=== PATIENT | female | born 1995 | race American Indian/Alaskan Native ===

== ENCOUNTER 2022-06-02 21:52 | Emergency (ER) | payer BC ==
[2022-06-02] MEDS ORDERED: LORazepam 1 MG Tab PO ONE (22:36)
== END 2022-06-02 22:52 | disposition home or self-care (01) ==
LOC: JP.ED 21:52
DX: J45.909 Unspecified asthma, uncomplicated (principal); R06.4 Hyperventilation; Z72.0 Tobacco use; Z79.899 Other long term (current) drug therapy
CPT/HCPCS: 99283; 99284; A9270-GY

== ENCOUNTER 2022-06-19 21:49 | Emergency (ER) | payer BC | END 2022-06-19 23:29 | disposition home or self-care (01) | LOC: JP.ED 21:49 | DX: J03.91 Acute recurrent tonsillitis, unspecified (principal) | CPT/HCPCS: 36415; 85025; 86140; 87081; 87880-QW; 99283; 99284 ==

== ENCOUNTER 2022-06-25 19:50 | Emergency (ER) | payer BC ==
[2022-06-25] MEDS ORDERED: Sodium Chloride 0.9% 10 ML Syringe FLUSH PRN (20:33)
[2022-06-25] MEDS ORDERED: Lactated Ringers 1,000 ML IV ONE (20:33)
[2022-06-25] MEDS ORDERED: Ondansetron 4 MG/2 ML SDV IVPUSH ONE (20:33)
== END 2022-06-25 22:27 | disposition home or self-care (01) ==
LOC: JP.ED 19:50
DX: K52.9 Noninfective gastroenteritis and colitis, unspecified (principal); Z79.899 Other long term (current) drug therapy
CPT/HCPCS: 36415; 80048; 83605; 85025; 96374; 99283; 99284-25; J2405; J3490; J7120